=== PATIENT | female | born 1995 | race African-American/Black ===

== ENCOUNTER 2016-12-31 14:48 | Emergency (ER) | payer OTHER ==
[2016-12-31 15:02] VITALS: PULSE 72; TEMP 98.1; BMI 43.2
--- NOTE | 2016-12-31 16:00 | PDOC ---
History of Present Illness - General Chief Complaint: Syncope/Near Syncope Stated Complaint: SYNCOPE/NEAR SYNCOPE Time Seen by Provider: 12/31/16 15:36 History Source: Patient - History of Present Illness Presenting Symptoms: Syncope Timing/Duration: reports: resolved prior to arrival Past History - Past Medical History Allergies/Adverse Reactions: Allergies Allergy/AdvReac Type Severity Reaction Status Date / Time No Known Allergies Allergy Verified 12/31/16 15:44 Home Medications: Ambulatory Orders NK [No Known Home Medication] 12/31/16 Asthma: Yes - Psycho/Social/Smoking Cessation Hx Anxiety: No Suicidal Ideation: No Smoking History: Never smoked Have you smoked in the past 12 months: No Information on smoking cessation initiated: No Hx Alcohol Use: No Drug/Substance Use Hx: No Substance Use Type: None Review of Systems - Review of Systems Constitutional: No: Chills, Fever Respiratory: No: Shortness of Breath Cardiac (ROS): Yes: Palpitations. No: Chest Pain Neurological: Yes: Dizziness. No: Headache *Physical Exam - Vital Signs Last Vital Signs Temp Pulse Resp BP Pulse Ox 98.1 F 72 18 133/67 99 12/31/16 15:00 12/31/16 15:00 12/31/16 15:00 12/31/16 15:00 12/31/16 15:00 - Physical Exam General Appearance: Yes: Appropriately Dressed. No: Apparent Distress HEENT: positive: Normal Voice Neck: positive: Supple Respiratory/Chest: positive: Lungs Clear, Normal Breath Sounds. negative: Respiratory Distress Cardiovascular: positive: Regular Rate, S1, S2 Gastrointestinal/Abdominal: positive: Soft. negative: Tender Integumentary: positive: Dry, Warm Neurologic: positive: Fully Oriented, Alert, Normal Mood/Affect, Motor Strength 5/5 Heart Score/ECG Review - ECG Intrepretation Comment:: 12/31/16 17:51 Twelve-lead EKG was performed and reviewed by me. There is normal sinus rhythm with a normal rate. The axis is normal. The intervals are normal. There are no ST or T wave abnormalities. Impression: Normal twelve-lead EKG 12/31/16 18:04 ED Treatment Course - LABORATORY CBC & Chemistry Diagram: 12/31/16 16:30 12/31/16 17:00 - ADDITIONAL ORDERS Additional order review: Laboratory Results 12/31/16 12/31/16 12/31/16 16:15 15:43 15:43 POC Glucometer 99.72106 Urine Color Yellow Urine Appearance Clear Urine pH 7.0 Ur Specific [place] 1.027 Urine Protein Negative Urine Glucose (UA) Negative Urine Ketones Trace H Urine Blood Negative Urine Nitrite Negative Urine Bilirubin Negative Urine Urobilinogen Negative Ur Leukocyte Esterase Negative Urine HCG, Qual Negative 12/31/16 12/31/16 16:30 16:15 RBC 4.48 MCV 82.5 MCHC 31.6 L RDW 14.1 MPV 11.7 H Neutrophils % 67.0 Lymphocytes % 24.1 Monocytes % 7.5 Eosinophils % 1.0 Basophils % 0.4 POC Glucometer 99.45572 Medical Decision Making - Medical Decision Making 12/31/16 15:55 21-year-old female, morbid obesity, presenting to ED s/p syncopal event. Patient states while using treadmill in the gym today, began having dizziness, palpitations and felt disoriented. At some point, patient states she woke up on the ground and that nobody in the gym seem to be aware that she had passed out. Has since returned to baseline with no recurrent episodes. No CP or SOB. No h/o seizures. Patient states she did not eat breakfast prior to working out. No history of similar episodes in the past. No obvious RF for DVT/PE See exam Syncope while at gym this am w/ no witnesses per pt Baseline now C/o dizziness/palp prior to event No PO intake prior to event No RFs for DVT/PE Stable and well will w/ unremarkable exam Possibly transient hypoglycemia vs vasovagal -FS -EKG -Labs -anticipate discharge if w/u neg 12/31/16 16:01 12/31/16 17:52 Labs unremarkable. Pt remained stable and well will in ED, will dc at this time to f/u with her PMD. Reasons to return d/w pt 12/31/16 18:04 12/31/16 18:04 *DC/Admit/Observation/Transfer Diagnosis at time of Disposition: Syncope Qualifiers: Syncope type: unspecified Qualified Code(s): R55 - Syncope and collapse - Discharge Dispostion Disposition: HOME Condition at time of disposition: Improved - Patient Instructions Printed Discharge Instructions: DI for Syncope in Adults (Fainting) Additional Instructions: Your labs and EKG were normal in ED. The cause of your passing out is possibly due to low blood sugar or fleeting drop in your blood pressure Please return to ED for worsening of symptoms Follow up with your PMD
[2016-12-31 16:46] LABS: URINE APPEARANCE CLEAR; URINE BILIRUBIN NEGATIVE (NEGATIVE); URINE BLOOD NEGATIVE (NEGATIVE); URINE COLOR YELLOW; URINE GLUCOSE (UA) NEGATIVE (NEGATIVE); URINE KETONE TRACE (NEGATIVE); URINE LEUK ESTERASE NEGATIVE (NEGATIVE); URINE NITRITE NEGATIVE (NEGATIVE); URINE PROTEIN NEGATIVE (NEGATIVE); URINE UROBILINOGEN NEGATIVE E.U./dl (0.2-1.0)
[2016-12-31 16:58] LABS: BASOPHIL 0.4 % (0-2.0); MCH 26.1 pg (25.7-33.7); MCHC 31.6 g/dl (32.0-36.0); MEAN CELL VOLUME 82.5 fl (80-96); MEAN PLT VOLUME 11.7 fl (7.5-11.1); PLATELET COUNT 222 K/MM3 (134-434); RDW 14.1 % (11.6-15.6); WHITE BLOOD COUNT 6.2 K/mm3 (4.0-10.0)
[2016-12-31 17:47] LABS: ALBUMIN 3.3 g/dl (3.4-5.0); ALK PHOS 61 U/L (45-117); ANION GAP 11 (8-16); BILIRUBIN,TOTAL 0.5 mg/dL (0.2-1.0); CALCIUM 8.9 mg/dL (8.5-10.1); CO2 25 mmol/L (21-32); COCKROFT - GAULT 144.6955; GLUCOSE,RANDOM 78 mg/dL (74-106); SGOT/AST 21 U/L (15-37); SGPT/ALT 20 U/L (12-78); TOT PROT 6.9 g/dl (6.4-8.2)
[2016-12-31 18:18] VITALS: BP 123/64
--- NOTE | 2017-01-01 13:29 | EKG ---
Test Reason : Blood Pressure : / mmHG Vent. Rate : 065 BPM Atrial Rate : 065 BPM P-R Int : 178 ms QRS Dur : 078 ms QT Int : 400 ms P-R-T Axes : 046 074 048 degrees QTc Int : 416 ms POOR DATA QUALITY, INTERPRETATION MAY BE ADVERSELY AFFECTED SINUS RHYTHM WITH MARKED SINUS ARRHYTHMIA OTHERWISE NORMAL ECG NO PREVIOUS ECGS AVAILABLE Confirmed by MECHE SOLIMAN MD ([id number]) on 01/01/2017 1:29:20 PM Referred By: Confirmed By:MECHE SOLIMAN MD
== END 2016-12-31 18:18 | disposition home or self-care (01) ==
LOC: SUPCPDRO 14:48 → JER 14:48
DX: R55 Syncope and collapse (principal); E66.01 Morbid (severe) obesity due to excess calories; Z68.41 Body mass index [BMI] 40.0-44.9, adult
CPT/HCPCS: 36415; 80053; 81003; 84703; 85025; 93005; 93010; 99284-25

== ENCOUNTER 2020-08-21 14:29 | Emergency (ER) | payer OTHER ==
[2020-08-21 14:55] VITALS: TEMP 99.2; BMI 42.5
[2020-08-21] MEDS ORDERED: METOCLOPRAMIDE HCL INJECTION 10 MG/2 ML VIAL IVPB ONE (15:33)
[2020-08-21] MEDS ORDERED: SODIUM CHLORIDE 1,000 ML IV STA (15:33)
[2020-08-21] MEDS ORDERED: METOCLOPRAMIDE HCL INJECTION 10 MG/2 ML VIAL ONE (15:38)
[2020-08-21 16:07] VITALS: BP 109/63; PULSE 76
[2020-08-21 16:24] LABS: BASO % 0.9 % (0-2.0); EOS % 0.3 % (0-4.5); HEMATOCRIT 36.9 % (32.4-45.2); LYMPH % 20.3 % (8-40); MCH 27.4 pg (25.7-33.7); MCHC 32.6 g/dl (32.0-36.0); MEAN CELL VOLUME 84.1 fl (80-96); MEAN PLT VOLUME 11.7 fl (7.5-11.1); MONO % 8.2 % (3.8-10.2); NEUT % 70.3 % (42.8-82.8); PLATELET COUNT 213 K/MM3 (134-434); RBC 4.39 M/mm3 (3.60-5.2); RDW 13.5 % (11.6-15.6); WHITE BLOOD COUNT 5.4 K/mm3 (4.0-10.0)
[2020-08-21 16:38] LABS: POTASSIUM 4.2 mmol/L (3.5-5.1)
[2020-08-21 16:39] LABS: CALCIUM 9.4 mg/dL (8.5-10.1)
[2020-08-21 16:40] LABS: ALBUMIN 3.3 g/dl (3.4-5.0); BLOOD UREA NITROGEN 6.4 mg/dL (7-18)
[2020-08-21 16:43] LABS: CREATININE 0.8 mg/dL (0.55-1.3)
[2020-08-21 16:45] LABS: BILIRUBIN,TOTAL 0.6 mg/dL (0.2-1); TOT PROT 7.6 g/dl (6.4-8.2)
[2020-08-21 20:15] LABS: EPI CELLS >36 /uL (0-25.1); HYALINE CASTS 12 /uL (0-3.1); URINE APPEARANCE CLEAR; URINE BACTERIA 4780 /uL (0-1359); URINE BILIRUBIN NEGATIVE (NEGATIVE); URINE COLOR DK YELLOW; URINE GLUCOSE (UA) NEGATIVE (NEGATIVE); URINE KETONE 3+ (NEGATIVE); URINE LEUK ESTERASE TRACE (NEGATIVE); URINE NITRITE NEGATIVE (NEGATIVE); URINE PROTEIN 1+ (NEGATIVE); URINE WBC 86 /uL (0-25.8)
[2020-08-21 21:24] LABS: URINE RBC 0 /uL (0-23.9); YEAST NEGATIVE (NEGATIVE)
== END 2020-08-21 18:18 | disposition home or self-care (01) ==
LOC: JER 14:29
PROC: 3E033GC Introduction of Other Therapeutic Substance into Peripheral Vein, Percutaneous Approach (ICD-10-PCS; principal; 2020-08-21)
PROC: 3E033GC Introduction of Other Therapeutic Substance into Peripheral Vein, Percutaneous Approach (ICD-10-PCS; 2020-08-21)
PROC: 3E0337Z Introduction of Electrolytic and Water Balance Substance into Peripheral Vein, Percutaneous Approach (ICD-10-PCS; 2020-08-21)
DX: O21.1 Hyperemesis gravidarum with metabolic disturbance (principal); Z3A.10 10 weeks gestation of pregnancy
CPT/HCPCS: 36415; 76815-TC; 80053; 81003; 84702; 85025; 87077; 87086; 99284-25

== ENCOUNTER 2020-11-21 14:05 | Emergency (ER) | payer OTHER ==
[2020-11-21 14:18] VITALS: BP 108/68; TEMP 98.3; BMI 43.4
[2020-11-21 15:33] VITALS: PULSE 99
== END 2020-11-21 15:25 | disposition home or self-care (01) ==
LOC: JER 14:05
DX: U07.1 COVID-19 (principal)
CPT/HCPCS: 99281-25

== ENCOUNTER 2021-03-26 13:40 | Inpatient (IN) | payer OTHER ==
[2021-03-26 15:36] VITALS: BMI 48.2
[2021-03-26 15:44] LABS: BASO % 0.2 % (0-2.0); EOS % 0.3 % (0-4.5); HEMOGLOBIN 10.3 GM/dL (10.7-15.3); LYMPH % 17.5 % (8-40); MCH 26.5 pg (25.7-33.7); MCHC 32.2 g/dl (32.0-36.0); MEAN CELL VOLUME 82.4 fl (80-96); MEAN PLT VOLUME 10.5 fl (7.5-11.1); PLATELET COUNT 162 10^3/uL (134-434); RBC 3.88 M/mm3 (3.60-5.2); RDW 15.7 % (11.6-15.6); WHITE BLOOD COUNT 5.5 K/mm3 (4.0-10.0)
[2021-03-26 15:56] LABS: INR 0.87 (0.83-1.09); PROTHROMBIN TIME (PATIENT) 10.7 SEC (9.7-13.0)
[2021-03-26 15:58] LABS: ACTIVATED PTT 24.8 SECONDS (25.2-36.5)
[2021-03-26 16:06] LABS: BLOOD UREA NITROGEN 7.6 mg/dL (7-18); CALCIUM 8.6 mg/dL (8.5-10.1)
[2021-03-26] MEDS ORDERED: PROMETHAZINE HCL 25 MG/1 ML VIAL IVPUSH ONE (16:06)
[2021-03-26] MEDS ORDERED: BUTORPHANOL TARTRATE 1 MG/ML VIAL IVPB PRN (16:06)
[2021-03-26 16:10] LABS: CREATININE 0.8 mg/dL (0.55-1.3)
[2021-03-26] MEDS ORDERED: DINOPROSTONE 10 MG VAGINAL SUPPOSITORY VG ONE (16:25)
[2021-03-26] MEDS: ELECTROLYTE-148 SOLN 1,000 ML IV SCH (18:13)
[2021-03-27] MEDS ORDERED: BUTORPHANOL TARTRATE 1 MG/ML VIAL ONE ×2 (02:19)
[2021-03-27] MEDS ORDERED: PROMETHAZINE HCL 25 MG/1 ML VIAL ONE (02:19)
[2021-03-27] MEDS ORDERED: PCA PUMP NR ONE ×3 (05:27→20:49)
[2021-03-27] MEDS ORDERED: FENTANYL/BUPIVACAINE/NS/PF - PCEA - 50 ML DISP.SYRIN EP ONE ×4 (05:28→15:43)
[2021-03-27] MEDS: FENTANYL/BUPIVACAINE/NS/PF - PCEA - 50 ML DISP.SYRIN EP SCH ×4 (05:50→15:45)
[2021-03-27] MEDS ORDERED: NALOXONE HCL 0.4 MG/ML VIAL IVPUSH PRN (06:12)
[2021-03-27] MEDS ORDERED: OXYTOCIN 30 UNITS in 0.9% NS 30 UNIT/500 ML INFUS.BAG IVPB SCH (06:45)
[2021-03-27] MEDS ORDERED: LIDOCAINE HCL/EPINEPHRINE/PF 10 ML VIAL ONE (08:06)
[2021-03-27] MEDS: ELECTROLYTE-148 SOLN 1,000 ML IV SCH ×2 (09:45→14:15)
[2021-03-27] MEDS ORDERED: OXYTOCIN 30 UNITS in 0.9% NS 30 UNIT/500 ML INFUS.BAG IVPB ONE (12:27)
[2021-03-27] MEDS ORDERED: BUPIVACAINE HCL/PF 0.25% (2.5MG/ML) 10 ML VIAL ONE (14:44)
[2021-03-27] MEDS ORDERED: ePHEDrine SULFATE 50 MG/1 ML AMPULE ONE (18:16)
[2021-03-27] MEDS ORDERED: PROPOFOL 20 ML ONE (18:16)
[2021-03-27] MEDS ORDERED: PHENYLEPHRINE HCL 10 MG/1 ML SINGLE DOSE VIAL ONE (18:16)
[2021-03-27] MEDS ORDERED: SUCCINYLCHOLINE CHLORIDE 200 MG/10 ML SYRINGE ONE (18:16)
[2021-03-27] MEDS ORDERED: METHYLERGONOVINE MALEATE 0.2 MG/1 ML AMP IM PRN (18:21)
[2021-03-27] MEDS ORDERED: oxyCODONE HCL 5 MG TABLET PO PRN (18:21)
[2021-03-27] MEDS ORDERED: MIDAZOLAM HCL 2 MG/2 ML SINGLE DOSE VIAL ONE (18:31)
[2021-03-27] MEDS ORDERED: OXYTOCIN 10 UNITS/ML VIAL ONE (18:36)
[2021-03-27] MEDS ORDERED: DEXAMETHASONE SOD PHOSPHATE 4 MG/1 ML VIAL ONE (18:36)
[2021-03-27] MEDS ORDERED: ONDANSETRON 4 MG/2 ML VIAL ONE (18:36)
[2021-03-27] MEDS ORDERED: ONDANSETRON 4 MG/2 ML VIAL IVPUSH PRN (19:05)
[2021-03-27] MEDS ORDERED: KETOROLAC TROMETHAMINE 30 MG/1 ML VIAL ONE (19:14)
[2021-03-27] MEDS ORDERED: LACTATED RINGERS SOLUTION 1,000 ML IV SCH (19:15)
[2021-03-27] MEDS ORDERED: HYDROmorphone *PCA* 10MG/50ML DISP.SYRIN PCA SCH (19:15)
[2021-03-27] MEDS ORDERED: OXYTOCIN 20 UNITS in 0.9% NS 20 UNIT/1,000 ML INFUS.BAG IV ONE (19:16)
[2021-03-27] MEDS: OXYTOCIN 20 UNITS in 0.9% NS 20 UNIT/1,000 ML INFUS.BAG IV SCH (19:21)
[2021-03-27 19:35] LABS: CORD BASE EXCESS -6.5 mmol/L (0-2); CORD HCO3 19.9 mmHg (20-29); CORD PCO2 42.8 mmHg (30-78); CORD pH 7.285 (7.14-7.44)
[2021-03-27] MEDS ORDERED: HYDROmorphone *PCA* 10MG/50ML DISP.SYRIN ONE (20:49)
[2021-03-27] MEDS: ACETAMINOPHEN 1000 MG/100 ML VIAL (NON FORMULARY) IVPB SCH (23:25)
[2021-03-28] MEDS: ACETAMINOPHEN 1000 MG/100 ML VIAL (NON FORMULARY) IVPB SCH (01:18)
[2021-03-28 09:14] LABS: BASO % 0.1 % (0-2.0); HEMATOCRIT 28.1 % (32.4-45.2); HEMOGLOBIN 8.9 GM/dL (10.7-15.3); LYMPH % 9.8 % (8-40); MCH 26.7 pg (25.7-33.7); MCHC 31.8 g/dl (32.0-36.0); MEAN CELL VOLUME 83.9 fl (80-96); MONO % 9.4 % (3.8-10.2); NEUT % 80.7 % (42.8-82.8); PLATELET COUNT 144 10^3/uL (134-434); RBC 3.35 M/mm3 (3.60-5.2); RDW 15.7 % (11.6-15.6); WHITE BLOOD COUNT 10.3 K/mm3 (4.0-10.0)
[2021-03-28] MEDS ORDERED: oxyCODONE HCL 5 MG TABLET PO PRN (10:00)
[2021-03-28] MEDS: OXYTOCIN 20 UNITS in 0.9% NS 20 UNIT/1,000 ML INFUS.BAG IV SCH ×2 (10:10→18:29)
[2021-03-28] MEDS: SIMETHICONE 80 MG TAB.CHEW (FP) PO PRN ×2 (11:15→22:21)
[2021-03-28] MEDS ORDERED: PCA PUMP KEY 1 EACH EACH ONE (13:10)
[2021-03-28] MEDS: ACETAMINOPHEN 325 MG TABLET (FP) PO PRN ×3 (13:30→22:20)
[2021-03-28] MEDS: IBUPROFEN 600 MG TABLET (FP) PO PRN ×3 (13:30→22:19)
[2021-03-28] MEDS ORDERED: BISACODYL 10 MG SUPP.RECT RC PRN (18:21)
[2021-03-29] MEDS: IBUPROFEN 600 MG TABLET (FP) PO PRN ×3 (07:12→19:58)
[2021-03-29] MEDS: SIMETHICONE 80 MG TAB.CHEW (FP) PO PRN ×2 (07:12→12:44)
[2021-03-29] MEDS: ACETAMINOPHEN 325 MG TABLET (FP) PO PRN ×3 (07:14→19:58)
[2021-03-30] MEDS: IBUPROFEN 600 MG TABLET (FP) PO PRN (07:54)
[2021-03-30] MEDS: SIMETHICONE 80 MG TAB.CHEW (FP) PO PRN (07:54)
[2021-03-30] MEDS: ACETAMINOPHEN 325 MG TABLET (FP) PO PRN (07:55)
[2021-03-30 10:25] VITALS: BP 116/83; PULSE 77; TEMP 98.5
[2021-03-30 11:33] LABS: BASO % 0.2 % (0-2.0); EOS % 0.3 % (0-4.5); HEMATOCRIT 27.7 % (32.4-45.2); HEMOGLOBIN 8.9 GM/dL (10.7-15.3); MCH 27.2 pg (25.7-33.7); MCHC 32.3 g/dl (32.0-36.0); MEAN CELL VOLUME 84.1 fl (80-96); MEAN PLT VOLUME 10.7 fl (7.5-11.1); MONO % 7.1 % (3.8-10.2); NEUT % 83.4 % (42.8-82.8); PLATELET COUNT 156 10^3/uL (134-434); RBC 3.29 M/mm3 (3.60-5.2); WHITE BLOOD COUNT 9.6 K/mm3 (4.0-10.0)
== END 2021-03-30 14:00 | disposition home or self-care (01) | DRG 788 ==
LOC: JDEL 13:40 → JLDR 14:15 → J3W 03-27 21:30
PROVIDERS: ADMIT Obstetrics & Gynecology; ATTEND Obstetrics & Gynecology
PROC: 3E0P7VZ Introduction of Hormone into Female Reproductive, Via Natural or Artificial Opening (ICD-10-PCS; 2021-03-26)
PROC: 10D00Z1 Extraction of Products of Conception, Low, Open Approach (ICD-10-PCS; principal; 2021-03-27)
DX: O76 Abnormality in fetal heart rate and rhythm complicating labor and delivery (principal); O62.9 Abnormality of forces of labor, unspecified; O99.214 Obesity complicating childbirth; E66.01 Morbid (severe) obesity due to excess calories
CPT/HCPCS: 36415; 36600; 80048; 82803; 85025; 85610; 85730; 86780; 86850; 86900; 86901; 88307-TC